=== PATIENT | female | born 1995 | race American Indian/Alaskan Native ===

== ENCOUNTER 2025-07-25 11:56 | Emergency (ER) | payer MEDICAID, SELFPAY ==
[2025-07-25 11:57] VITALS: BMI 32.9
[2025-07-25 12:20] VITALS: BP 133/83; PULSE 87; RESP 18; TEMP 36.9; O2SAT 99
--- NOTE | 2025-07-25 12:21 | EKG_ITS ---
[facility] (Formerly [facility]) Test Date: 2025-07-25 Pat Name: HANS DENIS Department: Room: - Gender: Female Criminal Analyst: : 1995 Requested By: Romero Goldberg Order Number: [id number] Reading MD: Romero Goldberg Measurements Intervals [place] Rate: 83 P: 53 SC: 180 QRS: 47 QRSD: 92 T: 52 QT: 377 QTc: 444 Interpretive Statements SINUS RHYTHM No previous ECG available for comparison /store/S0/[id number]/[id number].pdf
--- NOTE | 2025-07-25 12:22 | EDNOTE_ITS ---
ED Dizzyness RME/HPI General Chief Complaint: Dizziness Stated Complaint: DIZZY X3 HRS Time Seen by Provider: 07/25/25 11:59 Source: patient Arrival date/time: 07/25/25 11:56 29-year-old female with no known medical history presents to the emergency room with a chief complaint of dizziness x 3 hours Mode of arrival: ambulatory Limitations: no limitations Related Data Previous Rx's ?Medication ?Instructions ?Recorded ibuprofen 800 mg tablet 800 mg PO TID PRN pain #30 t abs 10/17/19 prenat.vits,yelena,dnh-goig-iufoz 1 tab PO QDAY #30 tabs 10/17/19 Allergies Allergy/AdvReac Type Severity Reaction Status Date / Time No Known Allergies Allergy Verified 07/25/25 11:57 Review of Systems Review of Systems Systems Reviewed: All systems reviewed, normal except as documented Constitutional Constitutional: Reports system reviewed and no additional complaints, except as documented, Denies fatigue, Denies fever(s), Denies headache(s) and Denies weakness Eyes Eyes: Reports system reviewed and no additional complaints, except as documented, Denies blurry vision and Denies change in vision ENT Ears, Nose, Mouth, and Throat: Reports system reviewed and no additional complaints, except as documented, Denies otalgia, Denies headache(s), Denies nasal congestion, Denies throat swelling and Reports vertigo Cardiovascular Cardiovascular: Reports system reviewed and no additional complaints, except as documented, Reports chest pain, Denies dyspnea and Denies dyspnea on exertion Respiratory Respiratory: Reports system reviewed and no additional complaints, except as documented, Denies chest congestion, Denies cough, Denies dyspnea, Denies dyspnea on exertion and Denies wheezing Gastrointestinal Gastrointestinal: Reports system reviewed and no additional complaints, except as documented, Denies abdominal pain, Denies cramping, Denies nausea and Denies vomiting Genitourinary Genitourinary: Reports system reviewed and no additional complaints, except as documented Musculoskeletal Musculoskeletal: Reports system reviewed and no additional complaints, except as documented and Denies back pain Integumentary/Breasts Skin/Breast: Reports system reviewed and no additional complaints, except as documented and Denies wounds Neurologic Neurologic: Reports system reviewed and no additional complaints, except as documented, Denies confusion, Denies headache(s), Denies lack of coordination, Reports vertigo and Denies weakness Psychiatric Psychiatric: Reports system reviewed and no additional complaints, except as documented, Denies anxiety, Denies confusion, Denies depression, Denies paranoia, Denies suicidal ideation and Denies tactile hallucinations Endocrine Endocrine: Reports system reviewed and no additional complaints, except as documented and Denies fatigue Hematologic/Lymphatic Hematologic/Lymphatic: Reports system reviewed and no additional complaints, except as documented and Denies lymphadenopathy Allergic/Immunologic Allergic/Immunologic: Reports system reviewed and no additional complaints, except as documented, Denies throat swelling, Denies urticaria and Denies wheezing ED Exam General Limitations: Present no limitations Course Quality Measures none Orders Category Date Time Status EKG (ED ONLY) *Do not use* NOW Care 07/25/25 12:21 Completed EKG (ED Only) Stat Exams 07/25/25 12:21 Draft B-Type Natriuretic Peptide Stat Lab 07/25/25 12:31 Completed CBC Stat Lab 07/25/25 12:31 Completed Comprehensive Metabolic Panel Stat Lab 07/25/25 12:31 Completed Drug Screen,Urine Stat Lab 07/25/25 13:11 Received Free T4 (Free Thyroxine) Stat Lab 07/25/25 12:31 Completed HCG Qualitative,Urine Stat Lab 07/25/25 13:11 Completed Magnesium Stat Lab 07/25/25 12:31 Completed Partial Thromboplastin Time Stat Lab 07/25/25 12:31 Completed Prothrombin Time with INR Stat Lab 07/25/25 12:31 Completed TSH [Thyroid Stimulating Hormone] Stat Lab 07/25/25 12:31 Completed Troponin I Stat Lab 07/25/25 12:31 Completed Urinalysis, C/S if Indicated Stat Lab 07/25/25 13:11 Completed Ketorolac Inj [Toradol Inj] Med 07/25/25 14:01 Discontinued 30 mg IM X1 ONE Ondansetron Odt [Zofran Odt] Med 07/25/25 14:01 Discontinued 4 mg PO X1 ONE Potassium Chloride [K-Dur] Med 07/25/25 13:49 Discontinued 40 meq PO X1 ONE Vital Signs Vital signs: Vital Signs Temperature 98.5 F 07/25/25 12:20 Pulse Rate 87 07/25/25 12:20 Respiratory Rate 18 07/25/25 12:20 Blood Pressure 133/83 H 07/25/25 12:20 Pulse Oximetry (%) 99 07/25/25 12:20 Oxygen Delivery Method Room Air 07/25/25 12:20 PROCEDURES: EKG Interpretation #1: Date of EK07/25/25 Rate: 83 Interpretation: Reviewed by me EKG Impression: Normal sinus rhythm Dizziness MDM Narrative MDM Narrative:: 29-year-old female with no known medical history presents to the emergency room with a chief complaint of dizziness x 3 hours Patient is hemodynamically stable and in no apparent distress Physical examination shows a normal neurological exam. The patient is a GCS of 15 she is alert and oriented x 3 her pupils are PERRLA EOMs are intact patient has no neurological focal deficits. The patient is able to ambulate Patient states she is having some dizziness for the last 3 hours. Her cardiac workup was completed and was within normal limits. Her EKG shows normal sinus rhythm at [address] deviation CBC CMP troponin were all within normal limits Patient was discharged and educated to follow-up with primary care provider in the next 24 to 48 hours and return to the emergency room for any evidence of worsening signs or symptoms Patient data External records reviewed:: [facility] previous records Clinical information provided by:: patient Social determinants that could affect healthcare access:: none Patient has the following chronic illnesses:: No chronic illness How is presenting disease/condition affected by chronic disease/condition?: no chronic disease Evaluation data The following diagnostics were reviewed and interpreted by me:: lab results and radiology exam(s) Lab and/or radiology exams considered but not ordered:: Labs and radiology exams considered and ordered Interpretation Summary: N/A Medications / Prescriptions Medications or Prescriptions considered but not ordered:: Medication given Medication administrations:: Medication Administration History Discontinued Medications Ketorolac Tromethamine (Ketorolac Inj 60 Mg/2 Ml Vial) 30 mg IM X1 ONE Stop: 07/25/25 14:02 Ondansetron HCl (Ondansetron Odt 4 Mg Tabrap) 4 mg PO X1 ONE; Protocol Stop: 07/25/25 14:02 Potassium Chloride (Potassium Chloride 20 Meq Tabcr) 40 meq PO X1 ONE Stop: 07/25/25 13:50 Medication given Consultations Consultation(s) initiated? (list below): No Diagnosis Dizziness Differential Diagnosis: benign paroxysmal positional vertigo, orthostatic hypotension and other (Dizziness) Most likely diagnosis given after review of the tests above:: Dizziness Admission Indicated Admission indicated?: not indicated Admission Request Was there a request for admission?: No Disposition Plan Disposition Plan: Discharge Discharge Attestation Discharge Attestation: The patient and all family members were given an opportunity to ask questions and understood the discharge instructions. Discharge instructions specifically effects, indications for sooner follow up or return to the emergency department, and the expected course of current diagnosis. Patient condition: Stable Discharge Plan Plan Patient Disposition: HOME (Self Care) Discharge Disposition comment: Stable Prescriptions/Referrals Prescriptions/Med Rec: No Action prenat.vits,yelena,bjo-kvir-crfoy tablet 1 tab PO QDAY Qty: 30 10RF ibuprofen 800 mg tablet 800 mg PO TID PRN (Reason: pain) Qty: 30 0RF Problem List Clinical Impression: Dizziness Patient/Caregiver Discharge Instructions Education Materials: ED Dizziness, Uncertain Cause Additional Instructions: Please follow-up with your primary care provider in the next 24 to 48 hours Your cardiac examination today was within normal limits. Your blood work and urinalysis were within normal limits For any evidence of worsening signs or symptoms return to the emergency room immediately Print Language: [place] Stand Alone Forms: Ailyn Award Info., Work/School Release, Patient Portal Info Letter PHAN/BLANKA Supervising Physician PHAN/BLANKA Supervising Physician: Dr. Solorzano
[2025-07-25 12:47] LABS: Basophils # (Auto) 0.1 Thou/mm3 (0.0-0.2); Basophils % (Auto) 0 % (0-2.5); Eosinophils # (Auto) 0.0 Thou/mm3 (0.0-0.5); Eosinophils % (Auto) 0 % (0-10); Hematocrit 40.5 % (36.0-46.0); Hemoglobin 13.6 g/dL (12.0-16.0); Immature Granulocytes Auto 0.03 Thou/mm3 (0.00-0.00); Lymphocytes # (Auto) 1.7 Thou/mm3 (1.0-4.8); Lymphocytes % (Auto) 14 % (10-50); Mean Corpuscular HGB Conc 33.6 g/dl (31.0-37.0); Mean Corpuscular Hemoglobin 26.9 pg (25.0-35.0); Mean Corpuscular Volume 80 fL (80-100); Monocytes # (Auto) 0.5 Thou/mm3 (0.0-0.8); Monocytes % (Auto) 4 % (0-12); Neutrophils # (Auto) 9.9 Thou/mm3 (1.8-7.7); Neutrophils % (Auto) 81 % (37-80); Nucleated Red Blood Cell # 0.00 Thou/mm3 (0.00-0.00); Nucleated Red Blood Cell % 0 /100 WBC (0); Platelet Count 327 Thou/mm3 (140-440); RDW Standard Deviation 37.9 fL (36.4-46.3); Red Blood Count 5.05 Miln/mm3 (4.00-5.20); White Blood Count 12.2 Thou/mm3 (3.6-11.0)
[2025-07-25 12:57] LABS: INR 1.0 (0.9-1.3); Partial Thromboplastin Time 30.0 Seconds (22.0-36.0); Prothrombin Time 10.9 Seconds (9.0-12.2)
[2025-07-25 12:59] LABS: B-Type Natriuretic Peptide < 20 pg/mL (0-100)
[2025-07-25 13:04] LABS: Alanine Aminotransferase 22 U/L (10-49); Albumin, Serum 4.8 gm/dL (3.5-5.0); Albumin/Globulin Ratio 1.7 (1.2-2.2); Alkaline Phosphatase 68 U/L (46-116); Anion Gap 11 (7-16); Aspartate Amino Transferase 23 U/L (0-34); BUN/Creatinine Ratio 13 Ratio (12-20); Bilirubin,Total 0.4 mg/dL (0.3-1.2); Blood Urea Nitrogen 9 mg/dL (9-23); Calcium 9.6 mg/dL (8.3-10.6); Calcium (Corrected) 9.6 mg/dL (8.5-10.1); Carbon Dioxide 23.8 mMol/L (20.0-31.0); Chloride 103 mMol/L (98-107); Creatinine (Component) 0.7 mg/dL (0.6-1.3); Estimated Creatinine Clearance 116.4 mL/min (>60); Free T4 (Free Thyroxine) 1.48 ng/dL (0.89-1.76); Globulin 2.8 gm/dL (2.3-3.5); Glucose 112 mg/dL (74-106); Magnesium 1.7 mg/dL (1.6-2.6); Osmolality,Calculated 275 (275-295); Potassium 3.3 mMol/L (3.4-5.1); Sodium 138 mMol/L (136-145); Thyroid Stimulating Hormone 0.71 uIU/mL (0.55-4.78); Total Protein 7.6 gm/dL (5.7-8.2); Troponin I < 0.002 ng/mL (0.0-0.045); eGFR > 60 See Note
[2025-07-25 13:22] LABS: Collection Type, Urine Clean Catch
[2025-07-25 13:24] LABS: HCG Qualitative,Urine Negative
[2025-07-25 13:28] LABS: Bilirubin,Urine Negative (Negative); Blood,Urine Negative (Negative); Color,Urine Lt-Yellow (Lt Yel-Yel); Culture Indicated,Urine Not Indicated; Glucose, Urine Negative (Negative); Ketones,Urine Negative (Negative); Leukocyte Esterase,Urine Positive (Negative); Nitrite,Urine Negative (Negative); PH,Urine 8.0 (5.0-7.0); Protein,Urine Trace (Neg - Trace); RBC,Urine < 1 /hpf (0-3); Specific Gravity,Urine 1.019 (1.001-1.035); Squamous Epithelial Cell,Urine < 1 /hpf (0-5); Urobilinogen,Urine Negative mg/dL (0.0-1.0); WBC,Urine 6 /hpf (0-5)
[2025-07-25 13:32] LABS: Clarity,Urine Hazy (Clear/Hazy)
[2025-07-25] MEDS: ONDANSETRON ODT 4 MG TABRAP PO (14:06)
[2025-07-25] MEDS: KETOROLAC INJ 60 MG/2 ML VIAL 30 MG IM (14:07)
[2025-07-25 14:26] LABS: Amphetamine/Methamp Scrn,U Negative (Negative); Barbiturate Screen,Urine Negative (Negative); Benzodiazepines Screen,Urine Negative (Negative); Benzoylecgonine Screen, Ur Negative (Negative); Fentanyl Screen,Urine Negative (Negative); Opiate Screen,Urine Negative (Negative); THC Screen,Urine Negative (Negative)
== END 2025-07-25 14:42 | disposition home or self-care (01) ==
LOC: SERX 14:26
PROVIDERS: Emergency Provider Nurse Practitioner Family
DX: R42 Dizziness and giddiness (principal)
CPT/HCPCS: 36415; 80053; 80307; 81001; 81025; 83735; 83880; 84439; 84443; 84484; 85025; 85610; 85730; 93005; 96372; 99283; J1885; Q0162; A9270